=== PATIENT | male | born 1960 | race Caucasian/White ===

== ENCOUNTER 2017-01-16 16:34 | Emergency (ER) | payer BC ==
[2017-01-16 16:44] VITALS: BP 145/88
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
[2017-01-16] MEDS ORDERED: Sodium Chloride 0.9% 10 ML Syringe FLUSH PRN (18:03)
[2017-01-16] MEDS ORDERED: Morphine 2 MG/ML Syringe IVPUSH ONE (18:06)
== END 2017-01-16 18:20 | disposition short-term general hospital (02) ==
LOC: VM.ED 16:34
DX: T23.322A Burn of third degree of single left finger (nail) except thumb, initial encounter (principal); W89.0XXA Exposure to welding light (arc), initial encounter
CPT/HCPCS: 93005; 99285